=== PATIENT | male | born 1990 | race African-American/Black ===

== ENCOUNTER 2016-06-28 20:09 | Emergency (ER) | payer SELFPAY ==
[~2016-06-28] VITALS: Ht 170.2 cm; Wt 89.8 kg
[2016-06-28 21:03] LABS: HEMATOCRIT 45.5 % (38.0-50.0); MCH 30.6 PG (29.0-34.0); MCV 92.9 FL (86-99); MEAN PLAT.VOLUME 11.4 uM^3 (9.0-12.4); PLATELET COUNT 224 K/uL (156-360); RBC DIS.WIDTH-CV 11.9 % (11.8-14.6); RBC DIS.WIDTH-SD 40.9 % (39-53); WHITE BLOOD COUNT 7.9 K/uL (4.1-10.2)
[2016-06-28 21:10] LABS: CHLORIDE 106 mEq/L (99-109); POTASSIUM 3.9 mEq/L (3.7-5.4); SODIUM 140 mEq/L (136-147)
[2016-06-28 21:12] LABS: GLUCOSE 120 mg/dL (70-99); TROP-I INTERPRETATION NEGATIVE; TROPONIN-I < 0.01 ng/mL (0.0-0.30)
[2016-06-28 21:13] LABS: ANION GAP 7 MEQ/L (2-14)
[2016-06-28 21:17] LABS: UREA NITROGEN (BUN) 14 mg/dL (9-23)
[2016-06-28 21:33] LABS: GFR ESTIMATE (CALCULATED) > 59 mL/min/
[2016-06-28 22:05] LABS: D-DIMER ELISA < 0.15 mg/L FEU (< 0.57)
[2016-06-28] MEDS ORDERED: ULTRAM50 MG PO (22:12)
[2016-06-28 22:46] VITALS: BP 133/77
== END 2016-06-28 22:49 | disposition home or self-care (01) ==
LOC: EME 20:09
PROVIDERS: Emergency Medicine
DX: R07.89 Other chest pain (principal); Z73.3 Stress, not elsewhere classified; Z72.0 Tobacco use; I44.0 Atrioventricular block, first degree
CPT/HCPCS: 71020; 80048; 84484; 85027; 85379; 93005; 99281; 99285

== ENCOUNTER 2016-07-06 13:24 | Emergency (ER) | payer SELFPAY ==
[~2016-07-06] VITALS: Ht 170.2 cm; Wt 90.9 kg
[~2016-07-06 13:24] MED LIST: ULTRAM50 MG PO
[2016-07-06 15:02] VITALS: BP 149/77
== END 2016-07-06 15:03 | disposition home or self-care (01) ==
LOC: EME 13:24 → EXP 13:24
DX: S61.211A Laceration without foreign body of left index finger without damage to nail, initial encounter (principal); W29.3XXA Contact with powered garden and outdoor hand tools and machinery, initial encounter; Y93.H2 Activity, gardening and landscaping; Y92.096 Garden or yard of other non-institutional residence as the place of occurrence of the external cause; Z23 Encounter for immunization; F17.200 Nicotine dependence, unspecified, uncomplicated
CPT/HCPCS: 73140; 99281; 99284; S0020

== ENCOUNTER 2016-09-16 02:36 | Emergency (ER) | payer OTHER ==
[~2016-09-16] VITALS: Ht 172.7 cm; Wt 94.3 kg
[2016-09-16 03:25] LABS: ADD MIUA? NO; BILIRUBIN NEGATIVE; BLOOD NEGATIVE; COLOR YELLOW ((YELLOW)); GLUCOSE (STRIP) NEGATIVE; KETONES NEGATIVE; LEUKOCYTES NEGATIVE; NITRITE NEGATIVE; PROTEIN (STRIP) NEGATIVE; SPECIFIC GRAVITY 1.016 (1.000-1.030); UCUL ADDED? NO; UROBILINOGEN 0.2 MG/DL (0.2-1.0)
[2016-09-16 03:42] LABS: HEMATOCRIT 43.5 % (38.0-50.0); MCH 30.9 PG (29.0-34.0); MCHC 33.6 G/DL (30.0-36.0); MEAN PLAT.VOLUME 10.7 uM^3 (9.0-12.4); PLATELET COUNT 187 K/uL (156-360); RBC DIS.WIDTH-CV 12.1 % (11.8-14.6); RED BLOOD COUNT 4.73 M/uL (4.00-5.50); WHITE BLOOD COUNT 8.5 K/uL (4.1-10.2)
[2016-09-16 04:02] LABS: CHLORIDE 105 mEq/L (99-109); POTASSIUM 3.8 mEq/L (3.7-5.4); SODIUM 140 mEq/L (136-147)
[2016-09-16 04:05] LABS: GLUCOSE 103 mg/dL (70-99)
[2016-09-16 04:06] LABS: ANION GAP 11 MEQ/L (2-14); TOTAL BILIRUBIN 0.9 mg/dL (0.0-1.0)
[2016-09-16 04:07] LABS: SERUM ETHYL ALCOHOL < 10 mg/dL
[2016-09-16 04:08] LABS: ALKALINE PHOSPHATASE 55 IU/L (3-129); GFR ESTIMATE (CALCULATED) > 59 mL/min/
[2016-09-16 04:09] LABS: UREA NITROGEN (BUN) 11 mg/dL (9-23)
[2016-09-16 04:12] LABS: LIPASE 15 U/L (1.0-51.0)
[2016-09-16 04:37] VITALS: BP 141/84
== END 2016-09-16 04:38 | disposition home or self-care (01) ==
LOC: EME 02:36
PROVIDERS: Emergency Medicine
DX: R10.12 Left upper quadrant pain (principal); Z72.89 Other problems related to lifestyle; Z72.0 Tobacco use
CPT/HCPCS: 74176; 80053; 81003; 83690; 85027; 99281; 99284; G0480

== ENCOUNTER 2017-01-29 01:43 | Emergency (ER) | payer OTHER ==
[~2017-01-29] VITALS: Ht 170.2 cm; Wt 87.8 kg
[2017-01-29 02:00] LABS: HEMATOCRIT 46.3 % (38.0-50.0); MCH 31.7 PG (29.0-34.0); MCHC 34.3 G/DL (30.0-36.0); MCV 92.2 FL (86-99); MEAN PLAT.VOLUME 10.9 uM^3 (9.0-12.4); PLATELET COUNT 227 K/uL (156-360); RBC DIS.WIDTH-CV 11.6 % (11.8-14.6); RBC DIS.WIDTH-SD 39.2 % (39-53); RED BLOOD COUNT 5.02 M/uL (4.00-5.50); WHITE BLOOD COUNT 6.9 K/uL (4.1-10.2)
[2017-01-29 02:09] LABS: CHLORIDE 101 mEq/L (99-109); POTASSIUM 3.5 mEq/L (3.7-5.4); SODIUM 138 mEq/L (136-147)
[2017-01-29 02:11] LABS: GLUCOSE 102 mg/dL (70-99)
[2017-01-29 02:12] LABS: ANION GAP 11 MEQ/L (2-14)
[2017-01-29 02:14] LABS: GFR ESTIMATE (CALCULATED) > 59 mL/min/ (58.99-99999)
[2017-01-29 02:15] LABS: UREA NITROGEN (BUN) 12 mg/dL (9-23)
[2017-01-29 02:20] LABS: TROP-I INTERPRETATION NEGATIVE; TROPONIN-I < 0.01 ng/mL (0.0-0.30)
[2017-01-29 04:38] VITALS: BP 111/70
== END 2017-01-29 04:52 | disposition home or self-care (01) ==
LOC: EME 01:43
DX: R07.9 Chest pain, unspecified (principal); Z87.891 Personal history of nicotine dependence
CPT/HCPCS: 71020; 80048; 84484; 85027; 93005; 99281; 99284